=== PATIENT | male | born 1985 | race Caucasian/White ===

== ENCOUNTER 2021-06-23 08:07 | Emergency (ER) | payer OTHER ==
[~2021-06-23] VITALS: Ht 185.4 cm; Wt 72.7 kg
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
[2021-06-23 10:06] LABS: BARBITURATES NEG (NEG); BENZODIAZEPINES NEG (NEG); CANNABINOIDS NEG (NEG); COCAINE NEG (NEG); METHADONE NEG (NEG); OPIATES NEG (NEG); PHENCYCLIDINE NEG (NEG)
[2021-06-23 10:13] LABS: AMPHETAMINE/METHAMPHETAMINE POS (NEG)
[2021-06-23 10:18] VITALS: BP 135/92
--- NOTE | 2021-06-24 06:36 | EKG ---
[facility] [address] [place] [address] Test Date: 2021-06-23 Test Time: 08:22:23 Pat Name: SALIMA NORIEGA Department: Room: Gender: M Director Of Outpatient Services: : 1985 Requested By: MARIANNA CHOI Order Number: [id number] Reading MD: Tino Zavala Measurements Intervals Platter Rate: 92 P: 65 MS: 128 QRS: 74 QRSD: 100 T: 51 QT: 346 QTc: 433 Interpretive Statements SINUS RHYTHM INCOMPLETE RIGHT BUNDLE BRANCH BLOCK NON SPECIFIC ST-T WAVE CHANGES Electronically Signed On 06-25-2021 16:12:36 DIRECTOR OF PHYSICAL SECURITY by Tino Zavala
== END 2021-06-23 10:43 | disposition home or self-care (01) ==
LOC: ER 08:07
DX: F15.10 Other stimulant abuse, uncomplicated (principal); F17.200 Nicotine dependence, unspecified, uncomplicated; R51.9 Headache, unspecified; M54.2 Cervicalgia
CPT/HCPCS: 36415; 70450; 72125; 80307; 82962; 93005; 99285-25